=== PATIENT | female | born 1995 | race African-American/Black ===

== ENCOUNTER 2016-12-15 02:16 | Emergency (ER) | payer SELFPAY ==
[~2016-12-15] VITALS: Ht 172.7 cm; Wt 108.9 kg
[~2016-12-15 02:16] MED LIST: ALBU2.5V14 NEB; ALBU8.5H6 INH; CYCL10TA2 PO; GLIP5TAB3 PO; METF10002 PO; NAPR500T8 PO
[2016-12-15 02:27] VITALS: BP 134/93
[2016-12-15] MEDS ORDERED: NAPR375T3 PO (02:59)
[2016-12-15] MEDS ORDERED: CLIN300C86 PO (02:59)
--- NOTE | 2016-12-15 02:59 | PHYS DOC ---
Past Medical History Past Medical History: Asthma, Diabetes-Type II, Hypertension, Other Additional Past Medical Histor: ECZEMA,obesity Past Surgical History: No Surgical History Alcohol Use: None Drug Use: Marijuana Adult General Chief Complaint Chief Complaint: SKIN PROBLEM HPI HPI Patient is a 21 year old female who presents with bump to RUE. Patient reports she first noticed a red bump on her R upper arm 1 week ago. The area has been hot, and the pain is worse with movement. No drainage from site. She took some tylenol earlier today with insufficient relief. No other acute complaints. Review of Systems Review of Systems Constitutional: Denies fever or chills Respiratory: Denies cough or shortness of breath Cardiovascular: Denies chest pain GI: Denies abdominal pain, nausea, vomiting, or diarrhea Musculoskeletal: Red painful bump R upper arm Neurologic: Denies headache, focal weakness or sensory changes Current Medications Current Medications Current Medications Medications (Trade) Dose Ordered Sig/Aby Start Time Stop Time Status Last Admin Dose Admin Clindamycin HCl (Cleocin) 300 mg 1X ONCE 12/15/16 03:30 12/15/16 03:30 DC 12/15/16 03:10 300 MG Naproxen (Naprosyn) 500 mg 1X ONCE 12/15/16 03:30 12/15/16 03:30 DC 12/15/16 03:10 500 MG Allergies Allergies Allergies Coded Allergies Type Severity Reaction Last Updated Verified Iodinated Contrast Media - IV Dye Allergy Severe facial swelling & soa Yes Physical Exam Physical Exam Constitutional: Well developed, well nourished, no acute distress, non-toxic appearance Neck: Normal range of motion, no stridor Cardiovascular: Heart rate normal, regular rhythm, no murmur Lungs & Thorax: Bilateral breath sounds clear to auscultation Abdomen: Bowel sounds normal, soft, non-distended, no TTP Skin: Warm, dry. Small raised erythematous lesion to R lateral upper arm with central induration (1cm in diameter); no fluctuance noted Extremities: No obvious deformity, no edema Neurologic: Alert and oriented X 3, no gross deficits noted Current Patient Data Vital Signs Vital Signs Date Time Temp Pulse Resp B/P Pulse Ox O2 Delivery O2 Flow Rate FiO2 12/15/16 02:27 98.6 97 20 98 Room Air 98.6 EKG EKG [] Radiology/Procedures Radiology/Procedures [] Course & Med Decision Making Course & Med Decision Making Pertinent Labs and Imaging studies reviewed. (See chart for details) Patient is 21-year-old female who presents with red raised bumped her right upper arm. Appears to be cellulitis, however no evidence of abscess. This patient is diabetic, I do not want to incise this area unnecessarily. Will give dose of clindamycin in emergency department, as well as dose of naproxen. We'll discharge home with prescription for clindamycin, instructions for close outpatient follow-up and recheck in a few days, strict return precautions (such as increase in size, drainage from site, fever). Dragon Disclaimer Dragon Disclaimer This electronic medical record was generated, in whole or in part, using a voice recognition dictation system. Departure Departure Impression: Primary Impression: Cellulitis Disposition: HOME, SELF-CARE Condition: STABLE Referrals: NO PCP (PCP) LE WE[facility] MD Patient Instructions: Cellulitis Additional Instructions: Thank you for allowing us to provide care today in the Emergency Department. Take the provided medication as directed. Be sure to take the full course of antibiotics. You will need to be evaluated again on Sunday. You can see your primary care doctor, go to an urgent care, or return to the Emergency Department for this. Schedule a follow up appointment with your primary care doctor. Return promptly to the Emergency Department if you develop any new or concerning symptoms, such as fever or drainage from site. Scripts Clindamycin Hcl 300 Mg Capsule1 Cap PO TID #21 CAP Prov:ARAM COLIN MD 12/15/16 Naproxen 375 Mg [id number] Mg PO BID PRN PAIN #20 Prov:ARAM COLIN MD 12/15/16 ARAM COLIN MD Dec 15, 2016 02:59
[2016-12-15] MEDS ORDERED: CLINDAMYCIN HCL 150 MG CAPSULE. PO ONE (03:30)
[2016-12-15] MEDS ORDERED: NAPROXEN 500 MG TABLET PO ONE (03:30)
== END 2016-12-15 03:11 | disposition home or self-care (01) ==
LOC: ER 02:16
DX: L03.113 Cellulitis of right upper limb (principal); E11.9 Type 2 diabetes mellitus without complications; I10 Essential (primary) hypertension; F12.10 Cannabis abuse, uncomplicated; E66.9 Obesity, unspecified; J45.909 Unspecified asthma, uncomplicated; Z68.36 Body mass index [BMI] 36.0-36.9, adult; Z91.041 Radiographic dye allergy status
CPT/HCPCS: 99283

== ENCOUNTER 2016-12-21 19:04 | Emergency (ER) | payer SELFPAY ==
[~2016-12-21] VITALS: Ht 172.7 cm; Wt 113.4 kg
[~2016-12-21 19:04] MED LIST changes: +CLIN300C86 PO; +NAPR375T3 PO
[2016-12-21] MEDS ORDERED: IV NORMAL SALINE 1000ML BAG 1,000 ML IV SCH (20:43)
[2016-12-21 20:57] LABS: BILIRUBIN,URINE NEGATIVE (NEG); GLUCOSE,URINE NEGATIVE (NEG); NITRITE,URINE NEGATIVE (NEG); PH,URINE 6.5; PROTEIN,URINE NEGATIVE (NEG-TRACE)
[2016-12-21 21:00] LABS: BASO % 0 % (0-3); EOS % 2 % (0-3); HEMATOCRIT 36.3 % (36.0-47.0); HEMOGLOBIN 11.5 g/dL (12.0-15.5); LYMPH % 29 % (24-48); MEAN CORPUSCULAR HEMOGLOBIN 24 pg (25-35); MEAN CORPUSCULAR HGB CONC 32 g/dL (31-37); MEAN CORPUSCULAR VOLUME 75 fL (79-100); MONO % 5 % (0-9); NEUT % 65 % (31-73); PLATELET COUNT 426 x10^3/uL (140-400); RED BLOOD COUNT 4.88 x10^6/uL (3.50-5.40); RED CELL DISTRIBUTION WIDTH 15.7 % (11.5-14.5); WHITE BLOOD COUNT 10.6 x10^3/uL (4.0-11.0)
[2016-12-21 21:13] LABS: CALCIUM 9.8 mg/dL (8.5-10.1); CREATININE 0.7 mg/dL (0.6-1.0); GFR 129.1; POTASSIUM 4.8 mmol/L (3.5-5.1)
[2016-12-21 21:15] LABS: BACTERIA,URINE 0 /HPF (0-FEW); RBC,URINE TNTC /HPF (0-2); SQUAMOUS EPITHELIAL CELL,UR MOD /LPF; WBC,URINE 0 /HPF (0-4)
[2016-12-21] MEDS ORDERED: ONDANSETRON PF 4 MG/2 ML VIAL. IV ONE (21:15)
[2016-12-21 21:17] LABS: ALBUMIN 3.7 g/dL (3.4-5.0); ALBUMIN/GLOBULIN RATIO 0.9 (1.0-1.7); TOTAL BILIRUBIN 0.3 mg/dL (0.2-1.0); TOTAL PROTEIN 7.9 g/dL (6.4-8.2)
[2016-12-21 21:30] VITALS: BP 129/65
--- NOTE | 2016-12-21 21:43 | PHYS DOC ---
Past Medical History Past Medical History: Asthma, Diabetes-Type II, Hypertension, Other Additional Past Medical Histor: ECZEMA,obesity Past Surgical History: No Surgical History Alcohol Use: None Drug Use: Marijuana Adult General Chief Complaint Chief Complaint: MULTIPLE COMPLAINTS HPI HPI Patient is a 21 year old female who presents with concern of blood glucose level in the 50's; she was asymptomatic at the time. States she has otherwise had good blood glucose control recently. She also mentions continuing clindamycin for cellulitis right upper extremity and states it is improving, but persists. She also mentions some rash on her tongue that is not painful or itchy. She denies fever or chills, nausea or vomiting, sore throat, cough, difficulty breathing or swallowing. Review of Systems Review of Systems Constitutional: Denies fever or chills [] Eyes: Denies change in visual acuity, redness, or eye pain [] HENT: Denies nasal congestion or sore throat [] Respiratory: Denies cough or shortness of breath [] Cardiovascular: No additional information not addressed in HPI [] GI: Denies abdominal pain, nausea, vomiting, bloody stools or diarrhea [] : Denies dysuria or hematuria [] Musculoskeletal: Denies back pain or joint pain [] Integument: Denies rash or skin lesions [] Neurologic: Denies headache, focal weakness or sensory changes [] Endocrine: Denies polyuria or polydipsia [] Current Medications Current Medications Current Medications Medications (Trade) Dose Ordered Sig/Aby Start Time Stop Time Status Last Admin Dose Admin Ondansetron HCl (Zofran) 4 mg 1X ONCE 12/21/16 21:15 12/21/16 21:16 DC 12/21/16 21:02 4 MG Sodium Chloride (Iv Sodium Chloride 0.9% 1000ml Bag) 1,000 ml @ 1,000 mls/hr Q1H 12/21/16 20:43 12/21/16 21:42 DC 12/21/16 21:02 1,000 MLS/HR Allergies Allergies Allergies Coded Allergies Type Severity Reaction Last Updated Verified Iodinated Contrast Media - Oral and Allergy Severe facial swelling & soa Yes Physical Exam Physical Exam Constitutional: Well developed, well nourished, no acute distress, non-toxic appearance. [] HENT: Normocephalic, atraumatic, bilateral external ears normal, oropharynx moist, no oral exudates, nose normal. Some minimal posterior tongue papilla enlargement with no discoloration or drainage [] Eyes: PERRLA, EOMI, conjunctiva normal, no discharge. [] Neck: Normal range of motion, no tenderness, supple, no stridor. [] Cardiovascular:Heart rate regular rhythm [] Lungs & Thorax: Bilateral breath sounds clear to auscultation [] Abdomen: Bowel sounds normal, soft, no tenderness. [] Skin: Warm, dry. Right upper extremity with small subcentimeteric area of induration and erythema and tenderness with no fluctuance [] Back: Normal range of motion. [] Extremities: No tenderness, ROM intact, no edema. [] Neurologic: Alert and oriented X 3, normal motor function, normal sensory function, no focal deficits noted. [] Psychologic: Affect normal, judgement normal, mood normal. [] Current Patient Data Vital Signs Vital Signs Date Time Temp Pulse Resp B/P Pulse Ox O2 Delivery O2 Flow Rate FiO2 12/21/16 21:30 86 18 129/65 100 Room Air 12/21/16 19:51 98.7 98.7 Lab Values Laboratory Tests Test 12/21/16 18:50 12/21/16 19:43 12/21/16 20:40 POC Urine HCG, Qualitative Hcg negative (Negative) Glucose (Fingerstick) 75mg/dL (70-99) White Blood Count 10.6x10^3/uL (4.0-11.0) Red Blood Count 4.88x10^6/uL (3.50-5.40) Hemoglobin 11.5g/dL (12.0-15.5) L Hematocrit 36.3% (36.0-47.0) Mean Corpuscular Volume 75fL (79-100) L Mean Corpuscular Hemoglobin 24pg (25-35) L Mean Corpuscular Hemoglobin Concent 32g/dL (31-37) Red Cell Distribution Width 15.7% (11.5-14.5) H Platelet Count 426x10^3/uL (140-400) H Neutrophils (%) (Auto) 65% (31-73) Lymphocytes (%) (Auto) 29% (24-48) Monocytes (%) (Auto) 5% (0-9) Eosinophils (%) (Auto) 2% (0-3) Basophils (%) (Auto) 0% (0-3) Neutrophils # (Auto) 6.8x10^3uL (1.8-7.7) Lymphocytes # (Auto) 3.0x10^3/uL (1.0-4.8) Monocytes # (Auto) 0.5x10^3/uL (0.0-1.1) Eosinophils # (Auto) 0.2x10^3/uL (0.0-0.7) Basophils # (Auto) 0.0x10^3/uL (0.0-0.2) Urine Collection Type Unknown Urine Color Yellow Urine Clarity Clear Urine pH 6.5 Urine Specific [place] 1.025 Urine Protein Negativemg/dL (NEG-TRACE) Urine Glucose (UA) Negativemg/dL (NEG) Urine Ketones (Stick) Negativemg/dL (NEG) Urine Blood Large (NEG) Urine Nitrite Negative (NEG) Urine Bilirubin Negative (NEG) Urine Urobilinogen Dipstick 1.0mg/dL (0.2 mg/dL) Urine Leukocyte Esterase Negative (NEG) Urine RBC Tntc/HPF (0-2) Urine WBC 0/HPF (0-4) Urine Squamous Epithelial Cells Mod/LPF Urine Bacteria 0/HPF (0-FEW) Urine Mucus Marked/LPF Sodium Level 143mmol/L (136-145) Potassium Level 4.8mmol/L (3.5-5.1) Chloride Level 108mmol/L (98-107) H Carbon Dioxide Level 28mmol/L (21-32) Anion Gap 7 (6-14) Blood Urea Nitrogen 11mg/dL (7-20) Creatinine 0.7mg/dL (0.6-1.0) Estimated GFR (Cockcroft-Gault) 129.1 BUN/Creatinine Ratio 16 (6-20) Glucose Level 88mg/dL (70-99) Calcium Level 9.8mg/dL (8.5-10.1) Total Bilirubin 0.3mg/dL (0.2-1.0) Aspartate Amino Transferase (AST) 12U/L (15-37) L Alanine Aminotransferase (ALT) 22U/L (14-59) Alkaline Phosphatase 124U/L (46-116) H Total Protein 7.9g/dL (6.4-8.2) Albumin 3.7g/dL (3.4-5.0) Albumin/Globulin Ratio 0.9 (1.0-1.7) L Lipase 92U/L (73-393) Laboratory Tests 12/21/16 20:40 Laboratory Tests 12/21/16 20:40 Course & Med Decision Making Course & Med Decision Making Pertinent Labs and Imaging studies reviewed. (See chart for details) She appears well. Laboratory evaluation is unremarkable. Discussed to continue clindamycin for cellulitis. Return precautions given. She understands and agrees with plan. Dragon Disclaimer Dragon Disclaimer This electronic medical record was generated, in whole or in part, using a voice recognition dictation system. Departure Departure Impression: Primary Impression: Cellulitis Additional Impression: Hypoglycemia due to type 2 diabetes mellitus Disposition: HOME, SELF-CARE Condition: STABLE Referrals: NO PCP (PCP) Patient Instructions: Cellulitis, [id number] Additional Instructions: Continue your current medications. Follow-up with your primary care doctor within one week. Return for any concerns. Problem Qualifiers Primary Impression: Cellulitis Site of cellulitis: extremity Site of cellulitis of extremity: upper extremity Laterality: right Qualified Code: L03.113 - Cellulitis of right upper limb Billy RUTHERFORD MD Dec 21, 2016 21:43
== END 2016-12-21 22:10 | disposition home or self-care (01) ==
LOC: ER 19:04
DX: L03.113 Cellulitis of right upper limb (principal); E11.649 Type 2 diabetes mellitus with hypoglycemia without coma; F12.10 Cannabis abuse, uncomplicated; I10 Essential (primary) hypertension; J45.909 Unspecified asthma, uncomplicated; E66.9 Obesity, unspecified; Z91.041 Radiographic dye allergy status
CPT/HCPCS: 36415; 80053; 81001; 81025; 82947; 83690; 85027; 96361; 96374; 99284; J2405; J7030

== ENCOUNTER 2017-01-16 19:59 | Emergency (ER) | payer SELFPAY ==
[~2017-01-16 19:59] MED LIST changes: +METF-620 PO; -METF10002 PO
[2017-01-16] MEDS ORDERED: IV NORMAL SALINE 1000ML BAG 1,000 ML IV ONE (20:30)
[2017-01-16 20:43] LABS: BASO % 0 % (0-3); EOS % 2 % (0-3); HEMATOCRIT 38.2 % (36.0-47.0); HEMOGLOBIN 12.6 g/dL (12.0-15.5); LYMPH # 2.5 x10^3/uL (1.0-4.8); LYMPH % 21 % (24-48); MEAN CORPUSCULAR HEMOGLOBIN 24 pg (25-35); MEAN CORPUSCULAR HGB CONC 33 g/dL (31-37); MEAN CORPUSCULAR VOLUME 73 fL (79-100); MONO % 5 % (0-9); NEUT % 73 % (31-73); PLATELET COUNT 427 x10^3/uL (140-400); RED BLOOD COUNT 5.26 x10^6/uL (3.50-5.40); RED CELL DISTRIBUTION WIDTH 16.3 % (11.5-14.5); WHITE BLOOD COUNT 11.8 x10^3/uL (4.0-11.0)
[2017-01-16 20:53] LABS: CALCIUM 9.4 mg/dL (8.5-10.1); CREATININE 0.8 mg/dL (0.6-1.0); GFR 110.7
[2017-01-16 21:10] VITALS: BP 168/76
--- NOTE | 2017-01-16 21:11 | PHYS DOC ---
Past Medical History Past Medical History: Asthma, Diabetes-Type II, Hypertension, Other Additional Past Medical Histor: ECZEMA,obesity Past Surgical History: No Surgical History Alcohol Use: None Drug Use: Marijuana Adult General Chief Complaint Chief Complaint: ABDOMINAL PAIN IN HPI HPI Patient is a 21 year old female approx 6 wk preg by LMP who presents with concern of miscarriage. 5 days ago, she had onset of vaginal bleeding that progressed to heavy bleeding with blood clots, and has now decreased to spotting. She currently has no symptoms. Her mother told her to come for evaluation. She denies lightheadedness, fatigue, dyspnea, palpitations, abdominal pain, fever or chills, nausea or vomiting. Review of Systems Review of Systems Constitutional: Denies fever or chills [] Eyes: Denies change in visual acuity, redness, or eye pain [] HENT: Denies nasal congestion or sore throat [] Respiratory: Denies cough or shortness of breath [] Cardiovascular: No additional information not addressed in HPI [] GI: Denies abdominal pain, nausea, vomiting, bloody stools or diarrhea [] : Denies dysuria or hematuria [] Musculoskeletal: Denies back pain or joint pain [] Integument: Denies rash or skin lesions [] Neurologic: Denies headache, focal weakness or sensory changes [] Endocrine: Denies polyuria or polydipsia [] Current Medications Current Medications Current Medications Medications (Trade) Dose Ordered Sig/Aby Start Time Stop Time Status Last Admin Dose Admin Sodium Chloride (Iv Sodium Chloride 0.9% 1000ml Bag) 1,000 ml @ 1,000 mls/hr 1X ONCE 01/16/17 20:30 01/16/17 21:29 01/16/17 20:36 1,000 MLS/HR Allergies Allergies Allergies Coded Allergies Type Severity Reaction Last Updated Verified Iodinated Contrast Media - Oral and Allergy Severe facial swelling & soa Yes Physical Exam Physical Exam Constitutional: Well developed, well nourished, no acute distress, non-toxic appearance. [] HENT: Normocephalic, atraumatic, bilateral external ears normal, oropharynx moist, nose normal. [] Eyes: PERRLA, EOMI. [] Neck: Normal range of motion, supple. [] Cardiovascular: Regular tachycardia [] Lungs & Thorax: Bilateral breath sounds clear to auscultation [] Abdomen: Bowel sounds normal, soft, no tenderness. [] Skin: Warm, dry, no erythema, no rash. [] Back: Normal range of motion. [] Extremities: ROM intact, no edema. [] Neurologic: Alert and oriented X 3, normal motor function, normal sensory function, no focal deficits noted. [] Psychologic: Affect normal, judgement normal, mood normal. [] Current Patient Data Vital Signs Vital Signs Date Time Temp Pulse Resp B/P Pulse Ox O2 Delivery O2 Flow Rate FiO2 01/16/17 20:11 98.0 130 18 153/87 100 Room Air 98.0 Lab Values Laboratory Tests Test 01/16/17 19:18 01/16/17 20:30 POC Urine HCG, Qualitative Hcg negative (Negative) White Blood Count 11.8x10^3/uL (4.0-11.0) H Red Blood Count 5.26x10^6/uL (3.50-5.40) Hemoglobin 12.6g/dL (12.0-15.5) Hematocrit 38.2% (36.0-47.0) Mean Corpuscular Volume 73fL (79-100) L Mean Corpuscular Hemoglobin 24pg (25-35) L Mean Corpuscular Hemoglobin Concent 33g/dL (31-37) Red Cell Distribution Width 16.3% (11.5-14.5) H Platelet Count 427x10^3/uL (140-400) H Neutrophils (%) (Auto) 73% (31-73) Lymphocytes (%) (Auto) 21% (24-48) L Monocytes (%) (Auto) 5% (0-9) Eosinophils (%) (Auto) 2% (0-3) Basophils (%) (Auto) 0% (0-3) Neutrophils # (Auto) 8.6x10^3uL (1.8-7.7) H Lymphocytes # (Auto) 2.5x10^3/uL (1.0-4.8) Monocytes # (Auto) 0.5x10^3/uL (0.0-1.1) Eosinophils # (Auto) 0.2x10^3/uL (0.0-0.7) Basophils # (Auto) 0.0x10^3/uL (0.0-0.2) Sodium Level 136mmol/L (136-145) Potassium Level 4.0mmol/L (3.5-5.1) Chloride Level 101mmol/L (98-107) Carbon Dioxide Level 28mmol/L (21-32) Anion Gap 7 (6-14) Blood Urea Nitrogen 14mg/dL (7-20) Creatinine 0.8mg/dL (0.6-1.0) Estimated GFR (Cockcroft-Gault) 110.7 Glucose Level 93mg/dL (70-99) Calcium Level 9.4mg/dL (8.5-10.1) Laboratory Tests 01/16/17 20:30 Laboratory Tests 01/16/17 20:30 Course & Med Decision Making Course & Med Decision Making Pertinent Labs and Imaging studies reviewed. (See chart for details) Laboratory evaluation is unremarkable. Heart rate is improving after IV fluids. She plans to follow-up with her tube laser operator. Return precautions given. She understands and agrees with plan. Dragon Disclaimer Dragon Disclaimer This electronic medical record was generated, in whole or in part, using a voice recognition dictation system. Departure Departure Impression: Primary Impression: Spontaneous miscarriage Disposition: HOME, SELF-CARE Condition: STABLE Referrals: NO PCP (PCP) Patient Instructions: Miscarriage, [id number] Additional Instructions: He likely had a miscarriage. Follow-up with your OB doctor. Return for any concerns. Billy RUTHERFORD MD January 16, 2017 21:11
== END 2017-01-16 21:41 | disposition home or self-care (01) ==
LOC: ER 19:59
DX: O03.9 Complete or unspecified spontaneous abortion without complication (principal); E11.9 Type 2 diabetes mellitus without complications; E66.9 Obesity, unspecified; I10 Essential (primary) hypertension; J45.909 Unspecified asthma, uncomplicated; F12.10 Cannabis abuse, uncomplicated; Z91.041 Radiographic dye allergy status
CPT/HCPCS: 36415; 80048; 81025; 85027; 96360; 99284; J7030

== ENCOUNTER 2017-02-11 00:11 | Emergency (ER) | payer SELFPAY ==
[~2017-02-11] VITALS: Ht 172.7 cm; Wt 119.7 kg
--- NOTE | 2017-02-11 00:35 | PHYS DOC ---
Past Medical History Past Medical History: Anxiety, Asthma, Diabetes-Type II, Hypertension, Other Additional Past Medical Histor: ECZEMA,obesity Past Surgical History: No Surgical History Alcohol Use: None Drug Use: Marijuana Adult General Chief Complaint Chief Complaint: ASTHMA HPI HPI Patient is a 21 year old female who presents with complaint of shortness of breath. Patient states that she has history of episodic asthma. Patient states she started getting symptoms suddenly this evening approximately 1 hour prior to arrival. Patient states that she was sleeping when she suddenly woke up with shortness of breath. Patient also stated that she felt very anxious. Patient states she has had history of panic attacks in the past. The patient states that she hyperventilated and "blacked out." Patient states that she awoke shortly after and came to the emergency department for evaluation. Patient denies any associated chest pain. Patient states that she is still feeling anxious at this time and is still having shortness of breath. Patient did take one albuterol treatment prior to arrival which she stated helped provide partial relief of symptoms. Patient denies any fevers. Patient states she was not having any asthma symptoms earlier today and fell at her baseline state of health. Review of Systems Review of Systems Constitutional: Denies fever or chills [] Eyes: Denies change in visual acuity, redness, or eye pain [] HENT: Denies nasal congestion or sore throat [] Respiratory: Shortness of breath [] Cardiovascular: Denies chest pain or edema [] GI: Denies abdominal pain, nausea, vomiting, bloody stools or diarrhea [] : Denies dysuria or hematuria [] Musculoskeletal: Denies back pain or joint pain [] Integument: Denies rash or skin lesions [] Neurologic: Denies headache, focal weakness or sensory changes [] Current Medications Current Medications Current Medications Medications (Trade) Dose Ordered Sig/Aby Start Time Stop Time Status Last Admin Dose Admin Albuterol Sulfate (Ventolin Neb Soln) 2.5 mg 1X ONCE 02/11/17 01:00 02/11/17 01:01 DC 02/11/17 00:43 2.5 MG Diazepam (Valium) 5 mg 1X ONCE 02/11/17 01:00 02/11/17 01:01 DC 02/11/17 00:46 5 MG Allergies Allergies Allergies Coded Allergies Type Severity Reaction Last Updated Verified Iodinated Contrast Media - Oral and Allergy Severe facial swelling & soa Yes Physical Exam Physical Exam Constitutional: Alert, obese, afebrile, appears anxious. [] HENT: Normocephalic, atraumatic, bilateral external ears normal, oropharynx moist, no oral exudates, nose normal. [] Eyes: PERRLA, EOMI, conjunctiva normal, no discharge. [] Neck: Normal range of motion, no tenderness, supple, no stridor. [] Cardiovascular: Tachycardia, regular rhythm, no murmur [] Lungs & Thorax: Mildly restricted air movement bilaterally, no expiratory wheezes, no rales [] Abdomen: Bowel sounds normal, soft, no tenderness, no masses, no pulsatile masses. [] Skin: Warm, dry, no erythema, no rash. [] Back: No tenderness, no CVA tenderness. [] Extremities: No tenderness, no cyanosis, no clubbing, ROM intact, no edema. [] Neurologic: Alert and oriented X 3, normal motor function, normal sensory function, no focal deficits noted. [] Current Patient Data Vital Signs Vital Signs Date Time Temp Pulse Resp B/P (MAP) Pulse Ox O2 Delivery O2 Flow Rate FiO2 02/11/17 00:41 100 Room Air 02/11/17 00:15 98.5 89 26 98.5 EKG EKG Interpreted by me: Heart rate 86, normal sinus rhythm, normal intervals, normal axis, no acute ST/T-wave abnormalities present [] Radiology/Procedures Radiology/Procedures Two-view chest x-ray interpreted by me: No infiltrate, no effusions, normal cardiac silhouette [] Course & Med Decision Making Course & Med Decision Making Pertinent Labs and Imaging studies reviewed. (See chart for details) Patient received albuterol breathing treatment and IM Valium in the emergency department. Patient's EKG and chest x-ray were unremarkable. On reevaluation patient states she feels much better at this time. Patient will be written prescription for albuterol inhaler. Patient provided with contact information for [facility] family practice services. Advise follow-up in one week. Recommended return to the emergency department for any worsening symptoms. Patient voiced understanding and in agreement with treatment plan. Dragon Disclaimer Dragon Disclaimer This electronic medical record was generated, in whole or in part, using a voice recognition dictation system. Departure Departure Impression: Primary Impression: Anxiety Additional Impression: Asthma Disposition: HOME, SELF-CARE Condition: IMPROVED Referrals: NO PCP (PCP) Patient Instructions: Anxiety and Panic Attacks, Asthma, Adult Additional Instructions: Follow-up with your primary doctor in 1 week. Return to the emergency department for any worsening symptoms. Scripts Albuterol Sulfate (PROAIR HFA INHALER) 8.5 Gm Hfa.aer.ad 2 PUFF INH Q4-6HRS Y for SHORTNESS OF BREATH, #1 INHALER 0 Refills Prov: JOHANA GIL MD 02/11/17 Problem Qualifiers Additional Impression: Asthma Asthma severity: mild intermittent Asthma complication type: uncomplicated Qualified Codes: J45.20 - Mild intermittent asthma, uncomplicated JOHANA GIL MD February 11, 2017 00:35
[2017-02-11] MEDS ORDERED: ALBUTEROL SULFATE 2.5 MG/3 ML NEBU. NEB ONE (01:00)
[2017-02-11] MEDS ORDERED: PROAIR HFA8.5 GM INH (01:11)
[2017-02-11 01:18] VITALS: BP 152/75
--- NOTE | 2017-02-11 07:45 | RAD ---
EXAM: Chest, 2 views. HISTORY: Shortness of breath. COMPARISON: 02/14/2015. FINDINGS: Frontal and lateral views of the chest are obtained. There is no infiltrate, effusion or pneumothorax. The heart is normal in size. IMPRESSION: No acute pulmonary finding.
--- NOTE | 2017-02-12 10:06 | EKG ---
[facility] [address] [place] [address] Test Date: 2017-02-11 Test Time: 00:35:41 Pat Name: CHRISTIANO CUI Department: Room: Gender: F Supervisor Lathing: : 1995 Requested By: JOHANA GIL Order Number: [id number] Reading MD: Celio Stacy Measurements Intervals [place]not Rate: 86 P: -18 GA: 174 QRS: 53 QRSD: 84 T: 19 QT: 364 QTc: 439 Interpretive Statements SINUS RHYTHM NON-SPECIFIC ST/T CHANGES Electronically Signed On 02-13-2017 9:46:33 CDT by Celio Stacy
== END 2017-02-11 01:18 | disposition home or self-care (01) ==
LOC: ER 00:32
DX: J45.20 Mild intermittent asthma, uncomplicated (principal); E11.9 Type 2 diabetes mellitus without complications; I10 Essential (primary) hypertension; E66.9 Obesity, unspecified; F12.10 Cannabis abuse, uncomplicated; Z68.41 Body mass index [BMI] 40.0-44.9, adult
CPT/HCPCS: 71020; 93005; 94250; 94640; 96372; 99284; J3360

== ENCOUNTER 2017-02-21 10:26 | Emergency (ER) | payer SELFPAY ==
[~2017-02-21 10:26] MED LIST changes: +CLIN300C8 PO; -CLIN300C86 PO; +PROAIR HFA8.5 GM INH
[2017-02-21 10:46] VITALS: BP 154/70
--- NOTE | 2017-02-21 11:06 | PHYS DOC ---
Past Medical History Past Medical History: Anxiety, Asthma, Diabetes-Type II, Hypertension, Other Additional Past Medical Histor: ECZEMA,obesity Past Surgical History: No Surgical History Alcohol Use: None Drug Use: Marijuana Adult General Chief Complaint Chief Complaint: OTHER COMPLAINTS [facility] Patient is a 21 year old female presents to the emergency department for a release to go back to work. She states that she was seen here 2 days ago. According to medical records she was seen February 11 for anxiety. Spoke with patient in regards to following up with a primary care physician in regards to getting a recent release to go back to work. Patient states she does not have a primary care physician. Patient has a low-grade temp here in the emergency department of 99.5. She does state that she's had a cough and some congestion although she states that this is related to her asthma because it only bothers her at night. Review of Systems Review of Systems Constitutional: low grade fever Eyes: Denies change in visual acuity, redness, or eye pain [] HENT: Denies nasal congestion or sore throat [] Respiratory: cough denies shortness of breath [] Cardiovascular: No additional information not addressed in HPI [] GI: Denies abdominal pain, nausea, vomiting, bloody stools or diarrhea [] : Denies dysuria or hematuria [] Musculoskeletal: Denies back pain or joint pain [] Integument: Denies rash or skin lesions [] Neurologic: Denies headache, focal weakness or sensory changes [] Endocrine: Denies polyuria or polydipsia [] Allergies Allergies Allergies Coded Allergies Type Severity Reaction Last Updated Verified Iodinated Contrast Media - Oral and Allergy Severe facial swelling & soa Yes Physical Exam Physical Exam Constitutional: Well developed, well nourished, no acute distress, non-toxic appearance. [] HENT: Normocephalic, atraumatic, bilateral external ears normal, oropharynx moist, no oral exudates, nose normal. Bilateral tympanic membranes appear to be normal. Throat with no erythematous no exudate and no redness noted. No anterior cervical adenopathy noted. Eyes: PERRLA, EOMI, conjunctiva normal, no discharge. [] Neck: Normal range of motion, no tenderness, supple, no stridor. [] Cardiovascular:Heart rate regular rhythm, no murmur [] Lungs & Thorax: Bilateral breath sounds clear to auscultation [] Skin: Warm, dry, no erythema, no rash. [] Back: No tenderness Extremities: No tenderness, no cyanosis, no clubbing, ROM intact, no edema. [] Neurologic: Alert and oriented X 3, normal motor function, normal sensory function, no focal deficits noted. [] Psychologic: Affect normal, judgement normal, mood normal. [] Current Patient Data Vital Signs Vital Signs Date Time Temp Pulse Resp B/P (MAP) Pulse Ox O2 Delivery O2 Flow Rate FiO2 02/21/17 10:46 99.6 106 20 99 Room Air 99.6 EKG EKG [] Radiology/Procedures Radiology/Procedures [] Course & Med Decision Making Course & Med Decision Making Pertinent Labs and Imaging studies reviewed. (See chart for details) Spoke with patient regards to following up with the primary care physician for a work release. At this time she cannot be released to go to work and she has a 99.5 temperature with cough and congestion. 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 Spoke to patient in regards to using tylenol and ibuprofen for fever, chills and generalized body aches and discomfort. Drink plenty of fluids such as water, gatorade or propel. Patient was provided with signs and symptoms to return to the emergency department. Patient will be discharge home in stable condition. [] Dragon Disclaimer Dragon Disclaimer This electronic medical record was generated, in whole or in part, using a voice recognition dictation system. Departure Departure Impression: Primary Impression: Upper respiratory infection Disposition: HOME, SELF-CARE Condition: STABLE Referrals: NO PCP (PCP) Patient Instructions: Upper Respiratory Infection, Adult, [id number] Additional Instructions: Home to rest Tylenol or Ibuprofen for fever, chills, and generalized body aches Drink plenty of fluids Followup with a primary care provider for a release to return to work Return to emergency department as needed for signs and symptoms that become worse. MANDEEP PINEDA ASSOCIATE DIRECTOR QA Feb 21, 2017 11:06
== END 2017-02-21 11:10 | disposition home or self-care (01) ==
LOC: ER 10:26
DX: J06.9 Acute upper respiratory infection, unspecified (principal); J45.909 Unspecified asthma, uncomplicated; E11.9 Type 2 diabetes mellitus without complications; I10 Essential (primary) hypertension; E66.9 Obesity, unspecified; F12.10 Cannabis abuse, uncomplicated; Z91.041 Radiographic dye allergy status
CPT/HCPCS: 99281

== ENCOUNTER 2017-04-24 03:24 | Emergency (ER) | payer SELFPAY ==
[~2017-04-24] VITALS: Ht 170.2 cm; Wt 113.4 kg
[2017-04-24 04:00] LABS: BILIRUBIN,URINE NEGATIVE (NEG); GLUCOSE,URINE NEGATIVE (NEG); NITRITE,URINE NEGATIVE (NEG); PH,URINE 5.5; PROTEIN,URINE NEGATIVE (NEG-TRACE); UROBILINOGEN,URINE 0.2 mg/dL (0.2 mg/dL)
[2017-04-24 04:21] LABS: BASO % 0 % (0-3); EOS % 2 % (0-3); HEMATOCRIT 35.9 % (36.0-47.0); HEMOGLOBIN 11.6 g/dL (12.0-15.5); LYMPH % 24 % (24-48); MEAN CORPUSCULAR HEMOGLOBIN 24 pg (25-35); MEAN CORPUSCULAR HGB CONC 32 g/dL (31-37); MEAN CORPUSCULAR VOLUME 75 fL (79-100); MONO % 5 % (0-9); NEUT % 69 % (31-73); PLATELET COUNT 407 x10^3/uL (140-400); RED BLOOD COUNT 4.81 x10^6/uL (3.50-5.40); RED CELL DISTRIBUTION WIDTH 15.9 % (11.5-14.5); WHITE BLOOD COUNT 12.6 x10^3/uL (4.0-11.0)
[2017-04-24 04:24] LABS: BACTERIA,URINE FEW /HPF (0-FEW); RBC,URINE OCC /HPF (0-2); SQUAMOUS EPITHELIAL CELL,UR OCC /LPF; WBC,URINE OCC /HPF (0-4)
[2017-04-24] MEDS ORDERED: KETOROLAC 15 MG/ML VIAL. IV ONE (04:30)
[2017-04-24] MEDS ORDERED: ONDANSETRON PF 4 MG/2 ML VIAL. IV ONE (04:30)
[2017-04-24] MEDS ORDERED: IV NORMAL SALINE 1000ML BAG 1,000 ML IV SCH (04:30)
[2017-04-24 04:35] LABS: CALCIUM 9.6 mg/dL (8.5-10.1); CREATININE 0.8 mg/dL (0.6-1.0); GFR 110.7; POTASSIUM 3.3 mmol/L (3.5-5.1)
[2017-04-24 04:40] LABS: ALBUMIN 3.8 g/dL (3.4-5.0); ALBUMIN/GLOBULIN RATIO 0.9 (1.0-1.7); TOTAL BILIRUBIN 0.2 mg/dL (0.2-1.0); TOTAL PROTEIN 8.1 g/dL (6.4-8.2)
[2017-04-24 06:00] VITALS: BP 149/88
[2017-04-24] MEDS ORDERED: ONDA4TAB7 PO (06:14)
[2017-04-24] MEDS ORDERED: DICY10CA53 PO (06:14)
--- NOTE | 2017-04-24 07:32 | RAD ---
Indication abdominal pain and vomiting. A single view of the chest was obtained. Flat and upright films of the abdomen were also obtained. Comparison is made to a similar series of films 01/06/2015. The heart and pulmonary vessels appear normal. The lungs are clear. There is no pleural fluid or pneumothorax. There is no free air. The abdominal gas pattern is normal. No organomegaly or abnormal calculi are seen. IMPRESSION: No acute finding seen in the chest or abdomen on plain films
--- NOTE | 2017-04-24 07:52 | ED.ADGEN ---
Past Medical History Past Medical History: Anxiety, Asthma, Diabetes-Type II, High Cholesterol, Hypertension, Other Additional Past Medical Histor: ECZEMA,obesity Past Surgical History: No Surgical History Alcohol Use: None Drug Use: Marijuana Adult General Chief Complaint Chief Complaint: NAUSEA/VOMITING/DIARRHA HPI HPI Patient is a 21 year old woman, history of type 2 diabetes mellitus, obesity, hypertension, eczema, who presents to the emergency department with complaint of nausea, vomiting, diarrhea, and cramping upper abdominal pain that began yesterday. Patient states she had a fever at home as well yesterday, states that she did have positive sick contacts among coworker, states coworker were seen in the emergency room yesterday and was told that she might have "food poisoning". Patient denies any ingestions, she does work in the [employer] industry. Denies any recent travel or surgery, any history of swelling, rashes, urinary complaints. Has history of type 2 diabetes mellitus states her sugars are well controlled, although she had a low sugar yesterday. Patient with emesis during my evaluation in the ED, food and fluid. Review of Systems Review of Systems Constitutional: Denies fever or chills. [] Eyes: Denies change in visual acuity. [] HENT: Denies nasal congestion or sore throat. [] Respiratory: Denies cough or shortness of breath. [] Cardiovascular: Denies chest pain or edema. [] GI: Abdominal cramping in the upper abdomen, nausea, vomiting, loose brown stool , no blood in emesis or stool. : Denies dysuria. [] Musculoskeletal: Denies back pain or joint pain. [] Integument: Itching rash in the genital region, also on right forearm and feet. Neurologic: Denies headache, focal weakness or sensory changes. [] Endocrine: Denies polyuria or polydipsia. [] Lymphatic: Denies swollen glands. [] Psychiatric: Denies depression or anxiety. [] Current Medications Current Medications Current Medications Medications (Trade) Dose Ordered Sig/Aby Start Time Stop Time Status Last Admin Dose Admin Ketorolac Tromethamine (Toradol) 10 mg 1X ONCE 04/24/17 04:30 04/24/17 04:31 DC 04/24/17 04:40 10 MG Ondansetron HCl (Zofran) 4 mg 1X ONCE 04/24/17 04:30 04/24/17 04:31 DC 04/24/17 04:37 4 MG Sodium Chloride 1,000 ml @ 1,000 mls/hr Q1H 04/24/17 04:30 04/24/17 05:29 DC 04/24/17 04:42 1,000 MLS/HR Allergies Allergies Allergies Coded Allergies Type Severity Reaction Last Updated Verified Iodinated Contrast Media - Oral and Allergy Severe facial swelling & soa Yes Physical Exam Physical Exam Constitutional: Well developed, well nourished, no acute distress, non-toxic appearance. [] HENT: Normocephalic, atraumatic, bilateral external ears normal, oropharynx moist, no oral exudates, nose normal. [] Eyes: PERRLA, EOMI, conjunctiva normal, no discharge. [] Neck: Normal range of motion, no tenderness, supple, no stridor. [] Cardiovascular:Heart rate regular rhythm, no murmur, S1, S2, rubs or gallops. [] Lungs & Thorax: Bilateral breath sounds clear to auscultation , no wheezing, rhonchi, rales. No chest or crepitus or tenderness. [] Abdomen: Bowel sounds normal, soft, obese, tenderness to palpation in the epigastric region, no rebound, rigidity, no guarding. Skin: Warm, dry, no erythema. Back: No tenderness, no CVA tenderness. [] Extremities: No tenderness, no cyanosis, no clubbing, ROM intact, no edema. [] Neurologic: Alert and oriented X 3, normal motor function, normal sensory function, no focal deficits noted. [] Psychologic: Affect normal, judgement normal, mood normal. [] Current Patient Data Vital Signs Vital Signs Date Time Temp Pulse Resp B/P (MAP) Pulse Ox O2 Delivery O2 Flow Rate FiO2 04/24/17 06:00 98 16 149/88 (108) 99 Room Air 04/24/17 03:24 98.3 98.3 Lab Values Laboratory Tests Test 04/24/17 02:53 04/24/17 03:30 04/24/17 03:45 POC Urine HCG, Qualitative Hcg negative (Negative) Urine Collection Type Unknown Urine Color Yellow Urine Clarity Clear Urine pH 5.5 Urine Specific [place] >=1.030 Urine Protein Negative mg/dL (NEG-TRACE) Urine Glucose (UA) Negative mg/dL (NEG) Urine Ketones (Stick) Negative mg/dL (NEG) Urine Blood Negative (NEG) Urine Nitrite Negative (NEG) Urine Bilirubin Negative (NEG) Urine Urobilinogen Dipstick 0.2 mg/dL (0.2 mg/dL) Urine Leukocyte Esterase Negative (NEG) Urine RBC Occ /HPF (0-2) Urine WBC Occ /HPF (0-4) Urine Squamous Epithelial Cells Occ /LPF Urine Bacteria Few /HPF (0-FEW) Urine Mucus Slight /LPF White Blood Count 12.6 x10^3/uL (4.0-11.0) H Red Blood Count 4.81 x10^6/uL (3.50-5.40) Hemoglobin 11.6 g/dL (12.0-15.5) L Hematocrit 35.9 % (36.0-47.0) L Mean Corpuscular Volume 75 fL (79-100) L Mean Corpuscular Hemoglobin 24 pg (25-35) L Mean Corpuscular Hemoglobin Concent 32 g/dL (31-37) Red Cell Distribution Width 15.9 % (11.5-14.5) H Platelet Count 407 x10^3/uL (140-400) H Neutrophils (%) (Auto) 69 % (31-73) Lymphocytes (%) (Auto) 24 % (24-48) Monocytes (%) (Auto) 5 % (0-9) Eosinophils (%) (Auto) 2 % (0-3) Basophils (%) (Auto) 0 % (0-3) Neutrophils # (Auto) 8.8 x10^3uL (1.8-7.7) H Lymphocytes # (Auto) 3.0 x10^3/uL (1.0-4.8) Monocytes # (Auto) 0.7 x10^3/uL (0.0-1.1) Eosinophils # (Auto) 0.2 x10^3/uL (0.0-0.7) Basophils # (Auto) 0.0 x10^3/uL (0.0-0.2) Sodium Level 141 mmol/L (136-145) Potassium Level 3.3 mmol/L (3.5-5.1) L Chloride Level 104 mmol/L (98-107) Carbon Dioxide Level 26 mmol/L (21-32) Anion Gap 11 (6-14) Blood Urea Nitrogen 8 mg/dL (7-20) Creatinine 0.8 mg/dL (0.6-1.0) Estimated GFR (Cockcroft-Gault) 110.7 BUN/Creatinine Ratio 10 (6-20) Glucose Level 85 mg/dL (70-99) Calcium Level 9.6 mg/dL (8.5-10.1) Total Bilirubin 0.2 mg/dL (0.2-1.0) Aspartate Amino Transferase (AST) 10 U/L (15-37) L Alanine Aminotransferase (ALT) 19 U/L (14-59) Alkaline Phosphatase 130 U/L (46-116) H Total Protein 8.1 g/dL (6.4-8.2) Albumin 3.8 g/dL (3.4-5.0) Albumin/Globulin Ratio 0.9 (1.0-1.7) L Lipase 150 U/L (73-393) Laboratory Tests 04/24/17 03:45 Laboratory Tests 04/24/17 03:45 EKG EKG Not indicated. [] Radiology/Procedures Radiology/Procedures Not indicated. [] Course & Med Decision Making Course & Med Decision Making Pertinent Labs and Imaging studies reviewed. (See chart for details) Patient with soft abdomen the emergency department active bowel sounds, nausea, vomiting and diarrhea, along with report of fever at home all she is afebrile in the ED. Active emesis, received IV fluids, antiemetics and pain medication. Obstruction series also obtained was unremarkable, laboratory studies which revealed mild leukocytosis. Blood glucose is 85, no evidence of acidosis, no infection in the patient's urine. On reevaluation, patient is feeling much better, is asleep in the ED with no further emesis. Discussed with patient that examination is consistent with a possible viral illness, although food poisoning would be potentially possible. Patient states she is ready go home at this time as she is feeling better, will discharge with Gabriel Titus, dietary recommendations, along with clear and detailed return instructions. Patient voiced understanding and agreement with plan as stated, discharged home in stable condition with plan as above. Dragon Disclaimer Dragon Disclaimer This electronic medical record was generated, in whole or in part, using a voice recognition dictation system. Departure Impression: Primary Impression: Abdominal pain Additional Impressions: Diarrhea Nausea & vomiting Disposition: 01 HOME, SELF-CARE Condition: IMPROVED Scripts Dicyclomine Hcl (BENTYL) 10 Mg Capsule 10 MG PO QID Y for abdominal pain, #12 TAB Prov: ROBERT MENDEZ DO 04/24/17 Ondansetron Hcl (ZOFRAN) 4 Mg Tablet 1 TAB PO PRN Q6-8HRS Y for NAUSEA, #12 TAB Prov: ROBERT MENDEZ DO 04/24/17 Problem Qualifiers ROBERT MENDEZ DO Apr 24, 2017 07:52
== END 2017-04-24 06:25 | disposition home or self-care (01) ==
LOC: ER 03:24
DX: R10.13 Epigastric pain (principal); R11.2 Nausea with vomiting, unspecified; R19.7 Diarrhea, unspecified; E11.9 Type 2 diabetes mellitus without complications; E78.00 Pure hypercholesterolemia, unspecified; I10 Essential (primary) hypertension; J45.909 Unspecified asthma, uncomplicated; F12.10 Cannabis abuse, uncomplicated; E66.9 Obesity, unspecified; Z68.39 Body mass index [BMI] 39.0-39.9, adult; Z91.041 Radiographic dye allergy status
CPT/HCPCS: 36415; 74022; 80053; 81001; 81025; 83690; 85027; 96361; 96374; 96375; 99285; J1885; J2405; J7030

== ENCOUNTER 2017-05-21 20:25 | Emergency (ER) | payer SELFPAY ==
[~2017-05-21] VITALS: Ht 170.2 cm; Wt 127.9 kg
[~2017-05-21 20:25] MED LIST changes: +DICY10CA53 PO; +ONDA4TAB7 PO
[2017-05-21 22:11] LABS: BILIRUBIN,URINE NEGATIVE (NEG); GLUCOSE,URINE NEGATIVE (NEG); NITRITE,URINE NEGATIVE (NEG); PROTEIN,URINE NEGATIVE (NEG-TRACE)
[2017-05-21] MEDS ORDERED: KETOROLAC TROMETHAMINE 30 MG/ML INJ. IV ONE (22:15)
[2017-05-21] MEDS ORDERED: ONDANSETRON PF 4 MG/2 ML VIAL. IV ONE (22:15)
[2017-05-21] MEDS ORDERED: IV NORMAL SALINE 1000ML BAG 1,000 ML IV ONE (22:15)
[2017-05-21 22:17] LABS: BACTERIA,URINE FEW /HPF (0-FEW); RBC,URINE 0 /HPF (0-2); SQUAMOUS EPITHELIAL CELL,UR MOD /LPF
[2017-05-21 22:17] LABS: BASO # 0.1 x10^3/uL (0.0-0.2); BASO % 0 % (0-3); EOS % 2 % (0-3); HEMATOCRIT 34.9 % (36.0-47.0); HEMOGLOBIN 11.4 g/dL (12.0-15.5); LYMPH # 2.8 x10^3/uL (1.0-4.8); LYMPH % 22 % (24-48); MEAN CORPUSCULAR HEMOGLOBIN 24 pg (25-35); MEAN CORPUSCULAR HGB CONC 33 g/dL (31-37); MEAN CORPUSCULAR VOLUME 75 fL (79-100); MONO % 5 % (0-9); NEUT % 71 % (31-73); PLATELET COUNT 421 x10^3/uL (140-400); RED BLOOD COUNT 4.67 x10^6/uL (3.50-5.40); RED CELL DISTRIBUTION WIDTH 15.6 % (11.5-14.5); WHITE BLOOD COUNT 12.9 x10^3/uL (4.0-11.0)
[2017-05-21 22:25] LABS: CALCIUM 8.9 mg/dL (8.5-10.1); CREATININE 0.6 mg/dL (0.6-1.0); GFR 154.2; POTASSIUM 3.6 mmol/L (3.5-5.1)
[2017-05-21 22:31] LABS: ALBUMIN 3.3 g/dL (3.4-5.0); ALBUMIN/GLOBULIN RATIO 0.8 (1.0-1.7); TOTAL BILIRUBIN 0.1 mg/dL (0.2-1.0); TOTAL PROTEIN 7.4 g/dL (6.4-8.2)
--- NOTE | 2017-05-21 23:14 | RAD ---
INDICATION : RUQ PAIN COMPARISON: None TECHNIQUE: Multiple ultrasound images obtained through the abdomen in grayscale and color. FINDINGS: Liver: Echogenic Gallbladder: Contracted IVC: Partially distended at level of liver. Common Bile Duct: Not dilated. Pancreas: Difficult visualization Right Kidney: No hydronephrosis. IMPRESSION: 1. Liver is echogenic. Nonspecific but can be seen with fatty infiltration. 2. Contracted gallbladder without common bile duct dilatation. Electronically signed by: Shayan Castillo MD (05/21/2017 11:11 PM) [id number]
[2017-05-22] MEDS ORDERED: DICY10CA53 PO (00:13)
--- NOTE | 2017-05-22 00:13 | PHYS DOC ---
Past Medical History Past Medical History: Anxiety, Asthma, Diabetes-Type II, High Cholesterol, Hypertension, Other Additional Past Medical Histor: ECZEMA,obesity Past Surgical History: No Surgical History Alcohol Use: None Drug Use: Marijuana Adult General Chief Complaint Chief Complaint: NAUSEA/VOMITING/DIARRHA HPI HPI Patient is a 21 year old female who presents with, pain and diarrhea. The patient reports 3 week history of intermittent loose stools, 6 episodes of diarrhea today. When she was wiping after having diarrhea the last time she noticed a tiny amount of blood on the toilet paper. Not having hematochezia or melena otherwise. Reports nausea. Denies fevers or chills, vomiting, hematemesis , dysuria or hematuria, vaginal bleeding or discharge. History of diabetes and hypertension, denies abdominal surgeries. No recent travel or antibiotics. No known exposures to other individuals with similar symptoms. Review of Systems Review of Systems Constitutional: Denies fever or chills Eyes: Denies change in visual acuity HENT: Denies nasal congestion or sore throat Respiratory: Denies cough or shortness of breath Cardiovascular: Denies chest pain or edema GI: Reports abdominal pain, nausea, and diarrhea, denies vomiting : Denies dysuria or hematuria Musculoskeletal: Denies back pain or joint pain Integument: Denies rash or skin lesions Neurologic: Denies headache, focal weakness or sensory changes Current Medications Current Medications Current Medications Medications (Trade) Dose Ordered Sig/Aby Start Time Stop Time Status Last Admin Dose Admin Ketorolac Tromethamine (Toradol) 30 mg 1X ONCE 05/21/17 22:15 05/21/17 22:16 DC 05/21/17 22:35 30 MG Ondansetron HCl (Zofran) 4 mg 1X ONCE 05/21/17 22:15 05/21/17 22:16 DC 05/21/17 22:36 4 MG Sodium Chloride 1,000 ml @ 1,000 mls/hr 1X ONCE 05/21/17 22:15 05/21/17 23:14 DC 05/21/17 22:36 1,000 MLS/HR Allergies Allergies Allergies Coded Allergies Type Severity Reaction Last Updated Verified Iodinated Contrast Media - Oral and Allergy Severe facial swelling & soa Yes Physical Exam Physical Exam Constitutional: Well developed, well nourished, no acute distress, non-toxic appearance. HENT: Normocephalic, atraumatic, bilateral external ears normal, oropharynx moist, nose normal. Eyes: conjunctiva normal, no discharge. Neck: supple, no stridor. Cardiovascular: RRR, no murmurs, no edema. Lungs & Thorax: LCTAB, no wheezing, no respiratory distress. Abdomen: soft, right upper quadrant tenderness without rebound or guarding, no masses or pulsatile masses, nondistended. Skin: Warm, dry, no erythema, no rash. Back: No CVA tenderness. Extremities: No tenderness, no edema. Neurologic: Alert and oriented X 3, no focal deficits noted. Psychologic: Affect normal, judgement normal, mood normal. Current Patient Data Vital Signs Vital Signs Date Time Temp Pulse Resp B/P (MAP) Pulse Ox O2 Delivery O2 Flow Rate FiO2 05/22/17 00:28 96 14 138/81 (100) 100 Room Air 05/21/17 21:30 98.1 98.1 Lab Values Laboratory Tests Test 05/21/17 20:46 05/21/17 21:35 05/21/17 22:10 POC Urine HCG, Qualitative Hcg negative (Negative) Urine Collection Type Unknown Urine Color Yellow Urine Clarity Clear Urine pH 6.0 Urine Specific [place] >=1.030 Urine Protein Negative mg/dL (NEG-TRACE) Urine Glucose (UA) Negative mg/dL (NEG) Urine Ketones (Stick) Negative mg/dL (NEG) Urine Blood Negative (NEG) Urine Nitrite Negative (NEG) Urine Bilirubin Negative (NEG) Urine Urobilinogen Dipstick 1.0 mg/dL (0.2 mg/dL) Urine Leukocyte Esterase Trace (NEG) Urine RBC 0 /HPF (0-2) Urine WBC 1-4 /HPF (0-4) Urine Squamous Epithelial Cells Mod /LPF Urine Bacteria Few /HPF (0-FEW) Urine Mucus Mod /LPF White Blood Count 12.9 x10^3/uL (4.0-11.0) H Red Blood Count 4.67 x10^6/uL (3.50-5.40) Hemoglobin 11.4 g/dL (12.0-15.5) L Hematocrit 34.9 % (36.0-47.0) L Mean Corpuscular Volume 75 fL (79-100) L Mean Corpuscular Hemoglobin 24 pg (25-35) L Mean Corpuscular Hemoglobin Concent 33 g/dL (31-37) Red Cell Distribution Width 15.6 % (11.5-14.5) H Platelet Count 421 x10^3/uL (140-400) H Neutrophils (%) (Auto) 71 % (31-73) Lymphocytes (%) (Auto) 22 % (24-48) L Monocytes (%) (Auto) 5 % (0-9) Eosinophils (%) (Auto) 2 % (0-3) Basophils (%) (Auto) 0 % (0-3) Neutrophils # (Auto) 9.1 x10^3uL (1.8-7.7) H Lymphocytes # (Auto) 2.8 x10^3/uL (1.0-4.8) Monocytes # (Auto) 0.7 x10^3/uL (0.0-1.1) Eosinophils # (Auto) 0.3 x10^3/uL (0.0-0.7) Basophils # (Auto) 0.1 x10^3/uL (0.0-0.2) Sodium Level 138 mmol/L (136-145) Potassium Level 3.6 mmol/L (3.5-5.1) Chloride Level 103 mmol/L (98-107) Carbon Dioxide Level 26 mmol/L (21-32) Anion Gap 9 (6-14) Blood Urea Nitrogen 12 mg/dL (7-20) Creatinine 0.6 mg/dL (0.6-1.0) Estimated GFR (Cockcroft-Gault) 154.2 BUN/Creatinine Ratio 20 (6-20) Glucose Level 96 mg/dL (70-99) Calcium Level 8.9 mg/dL (8.5-10.1) Magnesium Level 2.0 mg/dL (1.8-2.4) Total Bilirubin 0.1 mg/dL (0.2-1.0) L Aspartate Amino Transferase (AST) 19 U/L (15-37) Alanine Aminotransferase (ALT) 22 U/L (14-59) Alkaline Phosphatase 115 U/L (46-116) Total Protein 7.4 g/dL (6.4-8.2) Albumin 3.3 g/dL (3.4-5.0) L Albumin/Globulin Ratio 0.8 (1.0-1.7) L Lipase 131 U/L (73-393) Laboratory Tests 05/21/17 22:10 Laboratory Tests 05/21/17 22:10 EKG EKG [] Radiology/Procedures Radiology/Procedures PROCEDURE: ABDOMEN LTD INDICATION : RUQ PAIN COMPARISON: None TECHNIQUE: Multiple ultrasound images obtained through the abdomen in grayscale and color. FINDINGS: Liver: Echogenic Gallbladder: Contracted IVC: Partially distended at level of liver. Common Bile Duct: Not dilated. Pancreas: Difficult visualization Right Kidney: No hydronephrosis. IMPRESSION: 1. Liver is echogenic. Nonspecific but can be seen with fatty infiltration. 2. Contracted gallbladder without common bile duct dilatation. Electronically signed by: Jyotsna Reyes MD (05/21/2017 11:11 PM) [facility] DICTATED and SIGNED BY: JYOTSNA REYES MD DATE: 05/21/172306[] Course & Med Decision Making Course & Med Decision Making Pertinent Labs and Imaging studies reviewed. (See chart for details) The patient presents with abdominal pain and diarrhea. Heart rate slightly elevated, afebrile, well-appearing with moist mucous membranes. Abdomen minimally tender but greatest in the right upper quadrant. Gave IV fluids, Zofran, pain medication. Obtained labs, UA, ultrasound of the abdomen. No significant abnormalities identified. The patient felt better after treatment. Recommend rest, by mouth hydration with small sips of clear liquids, may try Imodium for diarrhea, provided prescription for Bentyl. Follow-up with primary care physician in 2-3 days without improving. May benefit from stool studies and possibly GI referral. Return to the emergency department for high fever, severe pain, uncontrolled vomiting, melanotic stools or large volume hematochezia, any otherwise worsening condition. Discharged home in stable and improved condition. [] Dragon Disclaimer Dragon Disclaimer This electronic medical record was generated, in whole or in part, using a voice recognition dictation system. Departure Departure Impression: Primary Impression: Abdominal pain Disposition: 01 HOME, SELF-CARE Condition: STABLE Referrals: NO PCP (PCP) LE SENIOR MD Patient Instructions: Abdominal Pain, [id number], Diarrhea, [id number] Additional Instructions: You were seen in the emergency department today for abdominal pain and diarrhea. Tests did not show any serious abnormalities. Your ultrasound did not show any definite gallstones. Please rest, drink fluids to stay hydrated, use Tylenol or ibuprofen for pain. Take Imodium for diarrhea and Bentyl for abdominal cramps. Follow-up with Dr. Senior in the primary care clinic in 2-3 days. You may need to give a stool sample to find out if he needed antibiotics. Come back for high fever, severe pain, uncontrolled vomiting, any otherwise worsening condition. Scripts Dicyclomine Hcl (BENTYL) 10 Mg Capsule 1 CAP PO TID Y for abdominal pain, #20 CAP Prov: SANDRA UGALDE MD 05/22/17 SANDRA UGALDE MD May 22, 2017 00:13
[2017-05-22 00:28] VITALS: BP 138/81
== END 2017-05-22 00:28 | disposition home or self-care (01) ==
LOC: ER 20:25
DX: R10.11 Right upper quadrant pain (principal); R19.7 Diarrhea, unspecified; R11.0 Nausea; F41.9 Anxiety disorder, unspecified; J45.909 Unspecified asthma, uncomplicated; E11.9 Type 2 diabetes mellitus without complications; E78.00 Pure hypercholesterolemia, unspecified; I10 Essential (primary) hypertension; E66.9 Obesity, unspecified; Z91.041 Radiographic dye allergy status
CPT/HCPCS: 36415; 76705; 80053; 81001; 81025; 83690; 83735; 85025; 96361; 96374; 96375; 99285; J1885; J2405; J7030; 87086

== ENCOUNTER 2018-01-20 13:35 | Emergency (ER) | payer SELFPAY ==
[2018-01-20] MEDS: MAGNESIUM CITRATE 296 ML SOLUTION. PO (14:34)
== END 2018-01-20 14:36 | disposition home or self-care (01) ==
LOC: ER 14:36
DX: K59.00 Constipation, unspecified (principal); J45.909 Unspecified asthma, uncomplicated; I10 Essential (primary) hypertension; E11.9 Type 2 diabetes mellitus without complications; F12.10 Cannabis abuse, uncomplicated
CPT/HCPCS: 99281

== ENCOUNTER 2018-04-17 11:17 | Emergency (ER) | payer OTHER | END 2018-04-17 12:58 | disposition home or self-care (01) | LOC: ER 11:17 | DX: S93.402A Sprain of unspecified ligament of left ankle, initial encounter (principal); F41.9 Anxiety disorder, unspecified; E11.9 Type 2 diabetes mellitus without complications; J45.909 Unspecified asthma, uncomplicated; E78.00 Pure hypercholesterolemia, unspecified; I10 Essential (primary) hypertension; E66.9 Obesity, unspecified; Z68.41 Body mass index [BMI] 40.0-44.9, adult; Z91.041 Radiographic dye allergy status; X58.XXXA Exposure to other specified factors, initial encounter; Y93.89 Activity, other specified; Y92.89 Other specified places as the place of occurrence of the external cause; Y99.8 Other external cause status | CPT/HCPCS: 99281 ==

== ENCOUNTER 2018-06-06 15:29 | Emergency (ER) | payer OTHER ==
[~2018-06-06] VITALS: Ht 172.7 cm; Wt 111.1 kg
[~2018-06-06 15:29] MED LIST changes: -METF-620 PO; +METF10007 PO; +NAPR-695 PO; -NAPR375T3 PO
[2018-06-06 17:44] VITALS: BP 162/90
[2018-06-06 17:48] LABS: BILIRUBIN,URINE NEGATIVE (NEG); CLARITY,URINE CLEAR; COLOR,URINE YELLOW; NITRITE,URINE NEGATIVE (NEG); PROTEIN,URINE NEGATIVE (NEG-TRACE)
[2018-06-06 18:00] LABS: SQUAMOUS EPITHELIAL CELL,UR MOD /LPF
[2018-06-06 18:01] LABS: BACTERIA,URINE MODERATE /HPF (0-FEW); RBC,URINE 0 /HPF (0-2)
[2018-06-06] MEDS ORDERED: AZITHROMYCIN 250 MG TABLET. PO ONE (18:30)
[2018-06-06] MEDS ORDERED: cefTRIAXone IM 250 MG VIAL IM ONE (18:30)
--- NOTE | 2018-06-06 18:47 | PHYS DOC ---
Past Medical History Past Medical History: Anxiety, Asthma, Diabetes-Type II, High Cholesterol, Hypertension, Other Additional Past Medical Histor: ECZEMA,obesity Past Surgical History: No Surgical History Alcohol Use: None Drug Use: Marijuana Adult General Chief Complaint Chief Complaint: BREAST PROBLEM HPI HPI Patient is a 22 year old female who presents with a reported lump to her breast. She states that she has also had congestion and has not been feeling well for a few days. She also is worried that she might be or have an STD. The patient states that she did talk to her primary care office lump in her breast. They are having her follow up in 2 weeks for a mammogram. I stated that we do not do emergency mammograms in the emergency department so she would need to keep that appointment. She is in agreement with that plan. She denies fever or sore throat. She denies any drainage from her nipples, vaginal drainage or pelvic pain. Review of Systems Review of Systems Constitutional: Denies fever or chills [] Eyes: Denies change in visual acuity, redness, or eye pain [] HENT: See history of present illness Respiratory: Denies cough or shortness of breath [] Cardiovascular: No additional information not addressed in HPI [] GI: Denies abdominal pain, nausea, vomiting, bloody stools or diarrhea [] : Denies dysuria or hematuria [] Musculoskeletal: Denies back pain or joint pain [] Integument: Denies rash or skin lesions [] Neurologic: Denies headache, focal weakness or sensory changes [] Endocrine: Denies polyuria or polydipsia [] All other systems were reviewed and found to be within normal limits, except as documented in this note. Current Medications Current Medications Current Medications Medications (Trade) Dose Ordered Sig/Aby Start Time Stop Time Status Last Admin Dose Admin Azithromycin (Zithromax) 1,000 mg 1X ONCE 06/06/18 18:30 18 18:31 DC Ceftriaxone Sodium (Rocephin Im) 250 mg 1X ONCE 06/06/18 18:30 06/06/18 18:31 DC Allergies Allergies Allergies Coded Allergies Type Severity Reaction Last Updated Verified Iodinated Contrast- Oral and IV Dye Allergy Severe facial swelling & soa Yes Physical Exam Physical Exam Constitutional: Well developed, well nourished, no acute distress, non-toxic appearance. [] HENT: Normocephalic, atraumatic, bilateral external ears normal, oropharynx moist, no oral exudates, nares are erythematous bilaterally with clear drainage noted Eyes: PERRLA, EOMI, conjunctiva normal, no discharge. [] Neck: Normal range of motion, no tenderness, supple, no stridor. [] Cardiovascular:Heart rate regular rhythm, no murmur [] Lungs & Thorax: Bilateral breath sounds clear to auscultation [] Abdomen: Bowel sounds normal, soft, no tenderness, no masses, no pulsatile masses. [] Skin: Warm, dry, no erythema, no rash. [] Back: No tenderness, no CVA tenderness. [] Extremities: No tenderness, no cyanosis, no clubbing, ROM intact, no edema. [] Neurologic: Alert and oriented X 3, normal motor function, normal sensory function, no focal deficits noted. [] Psychologic: Affect normal, judgement normal, mood normal. Breast: There is no erythema or external lesion noted to the breast Current Patient Data Vital Signs Vital Signs Date Time Temp Pulse Resp B/P (MAP) Pulse Ox O2 Delivery O2 Flow Rate FiO2 06/06/18 17:44 97.7 98 20 162/90 (114) 97 Room Air 97.7 Lab Values Laboratory Tests Test 06/06/18 17:32 06/06/18 17:42 Urine Collection Type Unknown Urine Color Yellow Urine Clarity Clear Urine pH 7.0 Urine Specific [place] 1.020 Urine Protein Negative mg/dL (NEG-TRACE) Urine Glucose (UA) Negative mg/dL (NEG) Urine Ketones (Stick) Negative mg/dL (NEG) Urine Blood Negative (NEG) Urine Nitrite Negative (NEG) Urine Bilirubin Negative (NEG) Urine Urobilinogen Dipstick 1.0 mg/dL (0.2 mg/dL) Urine Leukocyte Esterase Small (NEG) Urine RBC 0 /HPF (0-2) Urine WBC 1-4 /HPF (0-4) Urine Squamous Epithelial Cells Mod /LPF Urine Bacteria Moderate /HPF (0-FEW) Urine Mucus Mod /LPF POC Urine HCG, Qualitative Hcg negative (Negative) EKG EKG [] Radiology/Procedures Radiology/Procedures [] Course & Med Decision Making Course & Med Decision Making Pertinent Labs and Imaging studies reviewed. (See chart for details) []The patient is requesting presumptive treatment with Rocephin and Zithromax. She is going to follow-up with her primary care provider for further evaluation of the lump that she feels in her breast tissue. Dragon Disclaimer Dragon Disclaimer This electronic medical record was generated, in whole or in part, using a voice recognition dictation system. Departure Departure Impression: Primary Impression: Possible exposure to STD Additional Impressions: Lump of breast Upper respiratory infection Disposition: HOME, SELF-CARE Condition: STABLE Referrals: NO PCP (PCP) Patient Instructions: Breast Self-Exam, [id number], Sexually Transmitted Disease, Upper Respiratory Infection, Adult Additional Instructions: Do not engage in sexual activity for 2 weeks to allow time for the antibiotics to work. We will call only if your cultures come back positive. Keep your follow -up appointment with your primary care for a mammogram. Problem Qualifiers MOON DON APRN Jun 06, 2018 18:47
== END 2018-06-06 19:21 | disposition home or self-care (01) ==
LOC: ER 15:29
DX: J06.9 Acute upper respiratory infection, unspecified (principal); N63.0 Unspecified lump in unspecified breast; F41.9 Anxiety disorder, unspecified; J45.909 Unspecified asthma, uncomplicated; E11.9 Type 2 diabetes mellitus without complications; E78.00 Pure hypercholesterolemia, unspecified; I10 Essential (primary) hypertension; E66.9 Obesity, unspecified; Z68.37 Body mass index [BMI] 37.0-37.9, adult
CPT/HCPCS: 81001; 81025; 87086; 96372; 99284; J0696; Q0144

== ENCOUNTER → 2018-08-14 | Outpatient (CLI) | payer OTHER ==
--- NOTE | 2018-08-14 11:19 | RAD ---
Bilateral breast ultrasound, 08/14/2018: History: Bilateral breast pain and nipple discharge Both breasts were carefully scanned. Heterogeneous fibroglandular shadows are present. No mass or unusual fluid collection is seen. IMPRESSION: 1. The bilateral breast ultrasound reveals no abnormality. 2. Bilateral nipple discharge is most commonly due to systemic factors. Clinical follow-up is suggested.
== END | disposition home or self-care (01) ==
LOC: US 10:03
PROVIDERS: ATTEND Family Medicine
DX: N64.4 Mastodynia (principal); N64.52 Nipple discharge
CPT/HCPCS: 76641

== ENCOUNTER 2019-04-05 15:17 | Emergency (ER) | payer OTHER ==
[~2019-04-05] VITALS: Ht 172.7 cm; Wt 111.1 kg
[~2019-04-05 15:17] MED LIST changes: +ALBU2.5V8 INH; -PROAIR HFA8.5 GM INH
[2019-04-05 15:31] VITALS: BP 145/84
[2019-04-05] MEDS ORDERED: NAPR-514 PO (17:58)
--- NOTE | 2019-04-05 17:58 | PHYS DOC ---
Past Medical History Past Medical History: Anxiety, Asthma, Diabetes-Type II, High Cholesterol, Hypertension, Other Additional Past Medical Histor: ECZEMA,obesity Past Surgical History: No Surgical History Alcohol Use: None Drug Use: Marijuana Adult General Chief Complaint Chief Complaint: ANKLE PROBLEM HPI HPI Patient is a 23 year old AA female, accompanied by her family, with complaints of right ankle and right foot pain after dropping a dresser onto her leg earlier today. She denies any numbness, tingling, or weakness. She states that the ankle and foot are tender to touch, she currently rates her pain a 10 out of 10 on the pain scale, there are no alleviating factors. Patient states she has been able to ambulate with limping since the injury. Review of Systems Review of Systems Constitutional: Denies fever or chills [] Musculoskeletal: see history of present illness Integument: Denies rash or skin lesions [] Neurologic: Denies headache, focal weakness or sensory changes [] Current Medications Current Medications Current Medications Medications (Trade) Dose Ordered Sig/Aby Start Time Stop Time Status Last Admin Dose Admin Acetaminophen/ Hydrocodone Bitart (Lortab 5/325) 1 tab 1X ONCE 04/05/19 18:00 04/05/19 18:01 Allergies Allergies Allergies Coded Allergies Type Severity Reaction Last Updated Verified Iodinated Contrast- Oral and IV Dye Allergy Severe facial swelling & soa 05/09/16 Yes Physical Exam Physical Exam Constitutional: Well developed, well nourished, no acute distress, non-toxic appearance, obese. [] HENT: Normocephalic, atraumatic, bilateral external ears normal, nose normal. [] Eyes: conjunctiva normal, no discharge. [] Neck: Normal range of motion, no stridor. [] Lungs & Thorax: Respirations even and unlabored, no retractions, no respiratory distress Skin: Warm, dry, no erythema, no rash. [] Extremities: No cyanosis, no clubbing, ROM intact; pulse tenderness to palpation of right ankle and right foot, no crepitus, no deformity, no edema, no bruising Neurologic: Alert and oriented X 3, normal motor function, normal sensory function, no focal deficits noted. [] Psychologic: Affect normal, judgement normal, mood normal. [] Current Patient Data Vital Signs Vital Signs Date Time Temp Pulse Resp B/P (MAP) Pulse Ox O2 Delivery O2 Flow Rate FiO2 7/20/19 15:31 98.0 100 16 145/84 (104) 100 Room Air 98.0 EKG EKG [] Radiology/Procedures Radiology/Procedures R ankle and R foot xrays negative for fracture or acute findings, read by Dr. Cobian[] Course & Med Decision Making Course & Med Decision Making Pertinent Labs and Imaging studies reviewed. (See chart for details) dx: R foot pain, R ankle pain Prescription for naproxen written. recommend rest, ice, elevate, and wear the Anival wrap that was provided in the ER. Follow-up with primary care doctor if symptoms persist, return to the ER symptoms worsen Patient verbalized an understanding of home care, medications, follow-up, and return to ED instructions and was in agreement with the plan of care. [] Dragon Disclaimer Dragon Disclaimer This electronic medical record was generated, in whole or in part, using a voice recognition dictation system. Departure Departure Impression: Primary Impression: Right ankle pain Additional Impression: Right foot pain Disposition: HOME, SELF-CARE Condition: STABLE Referrals: REKHA AGUILAR DO (PCP) Patient Instructions: Ankle Pain Additional Instructions: Fill prescription(s) and use as directed. Recommend application of ice, elevation, and rest of affected extremity. Wear the Anival wrap that was placed until follow up appointment. Follow-up with your primary care doctor next week if symptoms persist. Return to the ER if your symptoms worsen. Scripts Naproxen (NAPROXEN) 500 Mg Tablet 1 TAB PO BID PRN for PAIN for 10 Days, #20 TAB 0 Refills Prov: [employer] 04/05/19 Problem Qualifiers Primary Impression: Right ankle pain Chronicity: acute Qualified Codes: M25.571 - Pain in right ankle and joints of right foot [employer] Apr 05, 2019 17:58
[2019-04-05] MEDS ORDERED: HYDROcodone/APAP 5/325MG 1 TAB TABLET PO ONE (18:00)
--- NOTE | 2019-04-05 18:19 | RAD ---
Indication: Dropped dresser on foot/ankle TECHNIQUE: 3 views of the right ankle and 3 views of the right foot COMPARISON: None Findings/ impression: No acute fracture or dislocation. Electronically signed by: Artie Borrero DO (04/05/2019 6:16 PM) [facility]
--- NOTE | 2019-04-05 18:19 | RAD ---
Indication: Dropped dresser on foot/ankle TECHNIQUE: 3 views of the right ankle and 3 views of the right foot COMPARISON: None Findings/ impression: No acute fracture or dislocation. Electronically signed by: Artie Borrero DO (04/05/2019 6:16 PM) [facility]
== END 2019-04-05 18:07 | disposition home or self-care (01) ==
LOC: ER 15:17
DX: M25.571 Pain in right ankle and joints of right foot (principal); M79.671 Pain in right foot; J45.909 Unspecified asthma, uncomplicated; E11.9 Type 2 diabetes mellitus without complications; E78.00 Pure hypercholesterolemia, unspecified; I10 Essential (primary) hypertension; E66.9 Obesity, unspecified; Z68.37 Body mass index [BMI] 37.0-37.9, adult; Z91.041 Radiographic dye allergy status
CPT/HCPCS: 73610; 73630; 99284